=== PATIENT | female | born 1970 | race Caucasian/White ===

== ENCOUNTER → 2023-07-11 08:02 | Outpatient (REF) | payer BC, SELFPAY | LOC: RAD 08:02 | PROVIDERS: ATTENDING PHYSICIAN Urology; FAMILY PHYSICIAN Family Medicine | DX: N30.10 Interstitial cystitis (chronic) without hematuria (principal); M62.89 Other specified disorders of muscle; N31.9 Neuromuscular dysfunction of bladder, unspecified | CPT/HCPCS: 76770; 76856 ==

== ENCOUNTER → 2024-02-21 08:04 | Outpatient (REF) | payer BC, SELFPAY | LOC: WDC 08:04 | PROVIDERS: ATTENDING PHYSICIAN Obstetrics & Gynecology Gynecology; FAMILY PHYSICIAN Family Medicine | DX: Z12.31 Encounter for screening mammogram for malignant neoplasm of breast (principal) | CPT/HCPCS: 77063; 77067 ==

== ENCOUNTER → 2024-12-10 07:39 | Outpatient (REF) | payer OTHER, SELFPAY | LOC: PAVMRI 07:39 | PROVIDERS: ATTENDING PHYSICIAN Psychiatry & Neurology Neurology; FAMILY PHYSICIAN Family Medicine | DX: R90.82 White matter disease, unspecified (principal) | CPT/HCPCS: 70553; A9575 ==